=== PATIENT | female | born 1930 | race Caucasian/White ===

== ENCOUNTER 2018-12-11 19:36 | Emergency (ER) | payer MEDICARE, BC ==
[~2018-12-11] VITALS: Ht 165.1 cm; Wt 66.4 kg
[~2018-12-11 19:36] MED LIST: ESTR0.3T10 PO; SYN0.025T PO
[2018-12-11] MEDS ORDERED: labetalol 20mg/4ml (5mg/ml) syringe IV ONE (20:20)
[2018-12-11 20:57] LABS: BASOPHILS % (AUTO) 0.8 % (0-1); EOSINOPHILS # (AUTO) 0.3 X10'3 (0-0.9); HEMATOCRIT 37.9 % (35.0-45.0); HEMOGLOBIN 12.8 g/dl (12.0-16.0); LYMPHOCYTES # (AUTO) 1.4 X10'3 (1.1-4.8); LYMPHOCYTES % (AUTO) 21.5 % (21-51); MEAN CORPUSCULAR HEMOGLOBIN 32.9 PG (27.0-31.0); MEAN CORPUSCULAR HGB CONC 33.8 g/dL (33.0-36.5); MEAN CORPUSCULAR VOLUME 97.3 FL (78-98); MEAN PLATELET VOLUME 8.8 FL (7.4-10.4); MONOCYTES # (AUTO) 0.5 X10'3 (0-0.9); MONOCYTES % (AUTO) 7.8 % (2-12); NEUTROPHILS # (AUTO) 4.2 X10'3 (1.8-7.7); NEUTROPHILS % (AUTO) 64.9 % (42-75); PLATELET COUNT 214 X10'3 (140-440); WHITE BLOOD COUNT 6.4 X10'3 (4.5-11.0)
[2018-12-11 21:08] LABS: ALANINE AMINOTRANSFERASE 22 U/L (12-78); ALBUMIN 3.8 G/DL (3.4-5.0); ALBUMIN/GLOBULIN RATIO 1.4 (1.1-1.5); ALKALINE PHOSPHATASE 51 IU/L (46-116); ANION GAP 7 (8-16); ASPARTATE AMINO TRANSFERASE 14 U/L (10-37); BILIRUBIN,TOTAL 0.2 MG/DL (0.1-1.0); BLOOD UREA NITROGEN 17 MG/DL (7-18); CALCIUM 9.4 MG/DL (8.5-10.1); CHLORIDE 106 MMOL/L (99-107); CREATININE 0.68 MG/DL (0.40-0.90); GLUCOSE 112 MG/DL (70-104); PARTIAL THROMBOPLASTIN TIME 25 SECONDS (22-32); POTASSIUM 3.7 MMOL/L (3.5-5.1); SODIUM 140 MMOL/L (135-145); TOTAL CARBON DIOXIDE 27.5 MMOL/L (24-32); TOTAL PROTEIN 6.6 G/DL (6.4-8.2); eGFR 81 ML/MIN
[2018-12-11] MEDS ORDERED: LISI-604 PO (21:27)
[2018-12-11 21:42] VITALS: BP 157/92
== END 2018-12-11 21:46 | disposition home or self-care (01) ==
LOC: ER 19:36
DX: I10 Essential (primary) hypertension (principal); E03.9 Hypothyroidism, unspecified; Z90.49 Acquired absence of other specified parts of digestive tract; Z90.710 Acquired absence of both cervix and uterus
CPT/HCPCS: 36415; 71045; 80053; 84484; 85025; 85610; 85730; 93005; 96374; 99284; J3490